=== PATIENT | male | born 1990 | race Caucasian/White ===

== ENCOUNTER 2024-12-08 16:34 | Emergency (ER) | payer BC ==
[~2024-12-08] VITALS: Ht 167.6 cm; Wt 79.4 kg
[2024-12-08 16:55] VITALS: TEMP 98.9
[2024-12-08] MEDS ORDERED: AMLODIPINE-ATO1 EAC1 PO (17:05)
[2024-12-08 17:23] LABS: BASOPHILS % 0.4 % (0.0-1.0); EOSINOPHILS % 0.3 % (0.0-6.0); LYMPHOCYTES % 31.0 % (18.0-39.1); MONOCYTES % 9.4 % (4.4-11.3); NEUTROPHILS % 58.6 % (38.7-80.0); RED CELL DISTRIBUTION WIDTH 11.9 % (11.7-14.4)
[2024-12-08] MEDS ORDERED: CLONIDINE HCL 0.1 MG TAB ONE (17:28)
[2024-12-08 17:31] LABS: INR 0.92
[2024-12-08 17:38] LABS: EST GLOMERULAR FILTRATION RATE 96.0 ML/MIN (>=60)
[2024-12-08 17:51] VITALS: BP 185/131
[2024-12-08] MEDS: SODIUM CHLORIDE 0.9% 1000ML 1,000 ML IV STA (17:51)
[2024-12-08] MEDS: CLONIDINE HCL 0.1 MG TAB PO ONE (17:51)
[2024-12-08 17:54] LABS: AMPHETAMINES SCREEN,URINE NEGATIVE (NEGATIVE); CANNABINOIDS SCREEN,URINE NEGATIVE (NEGATIVE); COCAINE SCREEN,URINE NEGATIVE (NEGATIVE); METHADONE SCREEN, URINE NEGATIVE (NEGATIVE); OPIATES SCREEN,URINE NEGATIVE (NEGATIVE)
[2024-12-08 18:42] VITALS: PULSE 83; RESP 18; O2SAT 100
== END 2024-12-08 18:43 | disposition home or self-care (01) ==
LOC: ER 16:55
DX: R41.82 Altered mental status, unspecified (principal); I10 Essential (primary) hypertension; R53.81 Other malaise; F17.210 Nicotine dependence, cigarettes, uncomplicated
CPT/HCPCS: 36415; 71045; 80053; 80307; 84484; 85025; 85610; 85730; 93005; 99284; J7030